=== PATIENT | male | born 2000 | race Two or more races ===

== ENCOUNTER 2023-10-14 07:58 | Outpatient (AMB) | payer OTHER, SELFPAY ==
--- NOTE | 2023-10-14 08:03 | MHC.PC.OV ---
Vital Signs 10/14/23 08:04 Height 5 ft 8 in Weight 240 lb BMI 36.5 BP 118/70 Blood Pressure Location Rt brachial Position Sitting Pulse 89 Pulse Source Pulse Oximeter Pulse Oximetry (%) 98 Oxygen Delivery Method Room Air Intake Visit Reasons: Overweight/SOB due to Vaping Intake Note: pt is for est care and whats to discuss weight loss and has experienced SOB due to vaping [employer] Required: No Accompanied by: Self / Same As Patient Allergies penicillin V Allergy (Mild, Verified 10/14/23 08:14) Unknown Medication List - Last Reconciled 10/14/23 by YASH Aguilar No Known Home Meds Tobacco use date assessed: 10/14/23 Dental Screening Dental Screen Date: 10/14/23 Did you have a dental visit in the last 12 months?: Yes Did you have a dental problem in the last 6 months where you did not have access to dental care?: No Was dental information given to patient?: Patient has dentist HPI HPI Comments History of Present Illness Details The patient is a 23-year-old male who I am meeting for the 1st time. Patient has been instructed to send us medical records from previous provider. Patient has no known medical history. Does have a BMI of 36.5. Patient has a chief complaint of intermittent chest tightness, about 2-3 times per week while he is exercising or walking his dog. Patient denies chest pain, dizziness, numbness, nausea, vomiting, diarrhea. Patient has not tried any medication for relief. Patient does nicotine vape, that this is likely contributing factor in he should limit and work with this. Patient not in should in quitting at this time. Patient has family history of asthma. Will prescribe patient albuterol inhaler and Symbicort, will also order pulmonary function test. [facility] Surgical History Hx of foot operation Hx of hand surgery Family History (Updated 10/14/23 @ 08:09 by Chaz Garcia CMA) Mother No problems noted. Father Diabetes Asthma Social History Housing: Apartment Alcohol intake: never Patient Tobacco Use Status: Current someday Tobacco user Tobacco use type: Smokeless Tobacco e-Cigarette/Vaping Use: Currently Using service: No Current occupational status: employed Current occupation: [employer] Current occupational exposures/hazards: No Cognitive needs: No Hearing needs: No Vision needs: Yes Questionnaire PHQ-9 Over the last 2 weeks, how often have you been bothered by any of the following problems? 1. Little interest or pleasure in doing things: not at all 2. Feeling down, depressed, or hopeless: not at all 3. Trouble falling or staying asleep, or sleeping too much: not at all 4. Feeling tired or having little energy: not at all 5. Poor appetite or overeating: not at all 6. Feeling bad about yourself - or that you are a failure or have let yourself or your family down: not at all 7. Trouble concentrating on things, such as reading the newspaper or watching television: not at all 8. Moving or speaking so slowly that other people could have noticed. Or the opposite - being so fidgety or restless that you have been moving around a lot more than usual: not at all 9. Thoughts that you would be better off or of hurting yourself in some way: not at all Total score: 0 Depression Screening Interpretation: Negative Depression Screening Done: Yes 98545 - PHQ-9 Billing: Yes Source: Developed by Drs. William Catalan, Anai Dia, Aric Neri and colleagues, with an educational jonas from [employer]. Thrive Questionnaire Date Thrive assessed: 10/14/23 I am a: Patient What is your living situation today?: I have a steady place to live Within the past 12 months, did the food you bought not last and you didn't have the money to get more?: Never true Within the past 12 months, did you worry whether your food would run out before you got money to buy more?: Never true Do you have trouble paying for medicines?: No Do you have trouble getting transportation to medical appointments?: No Do you have trouble paying your heating and electricity bill?: No Do you have trouble taking care of your child, family member or friend?: No Do you have trouble with day-to-day activities such as bathing, preparing meals, shopping, managing finances, etc.?: No Are you currently unemployed and looking for a job?: No Are you interested in more education?: No Please select the resources that you would like help with: None Currently or been in a relationship where the following occur: no concerns reported THRIVE Score: 0 AUDIT C Alcohol Use Questionnaire (AUDIT-C) 1. How often do you have a drink containing alcohol?: Never 3. How often do you have six or more drinks on one occasion?: Never Total Score: 0 Score Reviewed/Action Taken: Yes MAYRA-7 AMB Questionnaire MAYRA-7 Date MAYRA - 7 assessed: 10/14/23 Feeling nervous, anxious, or on edge: 0 = Not at all Not being able to stop or control worryin = Not at all Worrying too much about different things: 0 = Not at all Trouble relaxin = Not at all Being so restless that it is hard to sit still: 0 = Not at all Becoming easily annoyed or irritable: 0 = Not at all Feeling afraid as if something awful might happen: 0 = Not at all Total MAYRA-7 score (0-4 normal; 5-9 mild; 10-14 moderate; 15-21 severe): 0 Source: Developed by Drs. William Catalan, Anai Dia, Aric Neri and colleagues, with an educational jonas from [employer]. MAYRA-7 Assessment Billing MAYRA-7 Assessment Tool: MAYRA-7 Assessment 78650 Review of Systems Const All systems reviewed & are unremarkable except as noted in HPI and below Resp Denies cough, Denies excessive phlegm production, Denies wheezing and Reports other (Chest tightness during exercise.) Aller/Immun Denies wheezing Physical exam (Primary Care) Care Plan Goal for BP management: Vital signs reviewed stable. BMI result Body Mass Index 36.5 Tobacco/Smoking Status: Tobacco use Status Patient Tobacco Use Status Current someday Tobacco 10/14/23 08:10 Tobacco use type Smokeless Tobacco 10/14/23 08:10 Depression Screening Interpretation: Negative Currently or been in a relationship where the following occur: no concerns reported Const Other: Appearance: Alert.? Oriented X3.? No acute distress.? Head: Normocephalic, atraumatic. + separate dermatitis of scalp Eyes: Pupils equal, round and reactive to light.? Neck: Normal inspection.? Neck supple.? CVS: Normal heart rate and rhythm.? Pulses normal.? Respiratory: No respiratory distress.? Slight wheeze bilateral upper lobes. Neuro: Oriented X 3.? No motor deficit.? No sensory deficit. CN 2-12 intact Assessment and Plan Assessment & Plan (1) Reactive airway disease: Comment: Will give patient albuterol and Symbicort inhalers. Will order PFTs. Code(s): J45.909 - Unspecified asthma, uncomplicated Qualifiers: Asthma severity: unspecified severity Asthma persistence: unspecified Asthma complication type: uncomplicated Qualified Code(s): J45.909 - Unspecified asthma, uncomplicated (2) Seborrheic dermatitis of scalp: Comment: Will prescribe 2% ketoconazole shampoo. Code(s): L21.9 - Seborrheic dermatitis, unspecified Plan: Take your medications as prescribed. If you were prescribed antibiotics today, it is important that you take your medication to their entirety, do not skip any doses, do not finish them early. Follow-up with your primary care provider this week. Return to the emergency department with new or worsening symptoms. Such as fevers, chills, chest pain, shortness of breath, nausea, vomiting, dizziness, headache, vision changes, lethargy In case of emergency call 911 Plan Will draw labs and have patient follow-up in 2 months Orders: Orders Complete Blood Count Auto Diff Today Z13.0 - Encounter for screening for diseases of the blood and blood-forming organs and certain disorders involving the immune mechanism Vitamin B6 Today Z13.21 - Encounter for screening for nutritional disorder Vitamin B12 Today Z13.21 - Encounter for screening for nutritional disorder PFT pulmonary function test Today J45.909 - Unspecified asthma, uncomplicated Comprehensive Met. Panel Today Z91.89 - Other specified personal risk factors, not elsewhere classified Lipid Panel Today Z13.220 - Encounter for screening for lipoid disorders Vitamin D 25-OH (D2 and D3) Today Z13.21 - Encounter for screening for nutritional disorder UA CC w/rflx Micro + Cult Today Z13.89 - Encounter for screening for other disorder TSH reflex Free T4 Today Z13.29 - Encounter for screening for other suspected endocrine disorder Medications: New albuterol sulfate 90 mcg/actuation 2 puffs inhalation Q6H PRN 6.7 grams 0RF shortness of breath or wheezing budesonide-formoterol 160-4.5 mcg/actuation (Symbicort) 2 puffs inhalation BID 10.2 grams 0RF ketoconazole 2% 1 appl topical 2XW 120 mL 0RF Coding Level of Care Code New Pt Level 3 (58017) Diagnoses Reactive airway disease without complication, unspecified asthma severity, unspecified whether persistent J45.909 Asthma severity: unspecified severity Asthma persistence: unspecified Asthma complication type: uncomplicated Seborrheic dermatitis of scalp L21.9 Additional Codes MAYRA-7 Assessment Billing - MAYRA-7 Assessment Tool: MAYRA-7 Assessment 84155 ([id number]) Time Spent (min) 23
[2023-10-14 08:04] VITALS: BP 118/70; PULSE 89; O2SAT 98; BMI 36.5
== END 2023-10-14 08:31 | disposition home or self-care (01) ==
PROVIDERS: Visit Provider Nurse Practitioner Primary Care
DX: J45.909 Unspecified asthma, uncomplicated (principal); L21.9 Seborrheic dermatitis, unspecified
CPT/HCPCS: 99203

== ENCOUNTER 2023-10-14 08:26 | Outpatient (REF) | payer OTHER, SELFPAY ==
[2023-10-14 10:30] LABS: MANUAL DIFF FLAG NO
[2023-10-14 10:44] LABS: Basophils Percent Auto 0.3 % (0-2); Eosinophils Absolute Auto 0.1 X10*3/uL (0.0-0.4); Eosinophils Percent Auto 1.8 % (0-4); Hematocrit 44.5 % (42.0-52.0); Hemoglobin 15.4 g/dl (14.0-18.0); Imm Gran Abs Auto 0.03 X10*3/uL (0.00-0.03); Imm Gran Pct Auto 0.4 % (0.0-0.4); Lymphocytes Absolute Auto 2.7 X10*3/uL (1.2-4.9); Lymphocytes Percent Auto 33.9 % (20-40); Mean Corpuscular HGB Conc 34.6 g/dl (31.0-36.0); Mean Corpuscular Hemoglobin 30.8 pg (27.0-33.0); Mean Platelet Volume 10.6 fL (9.4-12.4); Monocytes Absolute Auto 0.7 X10*3/uL (0.1-1.2); Monocytes Percent Auto 8.3 % (2-11); Neutrophils Absolute Auto 4.3 x10*3/uL (2.0-8.3); Neutrophils Percent Auto 55.3 % (45-73); Platelet Count 252 X10*3/uL (160-400); Red Cell Distribution Width 12.5 % (11.0-16.0); White Blood Count 7.8 X10*3/uL (4.8-10.8)
[2023-10-14 11:54] LABS: Anion Gap 12 (12-20)
[2023-10-14 11:59] LABS: Alanine Aminotransferase 60 U/L (0-40); Albumin Level 4.3 g/dL (3.5-5.0); Alkaline Phosphatase 67 U/L (39-117); Aspartate Amino Transferase 28 U/L (5-37); Bilirubin Total 0.5 mg/dL (0.0-1.0); Blood Urea Nitrogen 14 mg/dL (9-16); Calcium 9.6 mg/dL (8.4-10.2); Carbon Dioxide 27 mmol/L (22-29); Chloride 105 mmol/L (96-108); Cholesterol 160 mg/dL (<200); Estimated Glomerular Filt Rate > 60; Glucose Random 90 mg/dL (60-115); HDL Cholesterol 42 mg/dL (>40); LDL Cholesterol Calculated 101 mg/dL (<100); Potassium 4.1 mmol/L (3.3-5.1); Sodium 140 mmol/L (135-145); Total Protein 7.9 g/dL (6.5-8.0); Triglycerides 88 mg/dL (<150)
[2023-10-14 12:00] LABS: Vitamin B12 364 pg/mL (200-900)
[2023-10-18 12:38] LABS: Vitamin D 25-OH, D2 <4 ng/mL; Vitamin D 25-OH, D3 29 ng/mL; Vitamin D 25-OH, Total 29 ng/mL (30-100)
== END 2023-10-14 08:27 | disposition home or self-care (01) ==
LOC: HO.HMGCLDS 08:26
PROVIDERS: PCP Nurse Practitioner Primary Care; Visit Provider Nurse Practitioner Primary Care
DX: Z13.0 Encounter for screening for diseases of the blood and blood-forming organs and certain disorders involving the immune mechanism (principal); Z13.21 Encounter for screening for nutritional disorder; Z13.6 Encounter for screening for cardiovascular disorders; Z13.220 Encounter for screening for lipoid disorders; Z13.29 Encounter for screening for other suspected endocrine disorder; Z91.89 Other specified personal risk factors, not elsewhere classified
CPT/HCPCS: 36415; 80053; 80061; 82306; 82607; 84207; 84443; 85025